=== PATIENT | female | born 1995 | race African-American/Black ===

== ENCOUNTER 2018-06-23 14:12 | Emergency (ER) | payer BC ==
[~2018-06-23] VITALS: Ht 154.9 cm; Wt 77.1 kg
[2018-06-23] MEDS ORDERED: NEXPLANON68 MG SUBQ (14:30)
[2018-06-23 15:46] LABS: ABSOLUTE NEUTROPHILS 3.4 thou/uL (1.4-8.2); BASOPHILS 0.4 % (0.0-2.0); EOSINOPHILS 1.3 % (0.0-3.0); HEMATOCRIT 39.9 % (37.0-47.0); HEMOGLOBIN 13.6 gm/dL (12.0-15.0); LYMPHOCYTES 25.1 % (24.0-44.0); MCH 31.3 pg (26.0-34.0); MCHC 34.1 g/dL (28.0-37.0); MCV 91.6 fL (80.0-100.0); MONOCYTES 7.5 % (1.0-8.0); PLATELET COUNT 359 thou/uL (150-400); POLYS 65.7 % (36.0-66.0); RBC 4.36 mil/uL (4.20-5.00); RDW 12.8 % (10.5-14.5); WBC 5.1 thou/uL (4.0-11.0)
[2018-06-23 15:57] LABS: ANION GAP 9 mmol/L (7-16); BUN 9 mg/dL (7-18); CHLORIDE 105 mmol/L (98-107); CO2 28 mmol/L (21-32); CREATININE 0.7 mg/dL (0.6-1.0); GLUCOSE 97 mg/dL (74-106); POTASSIUM 3.5 mmol/L (3.5-5.1); SODIUM 142 mmol/L (136-145)
[2018-06-23] MEDS ORDERED: TRAMADOL 50 MG50 MG PO (16:01)
[2018-06-23] MEDS ORDERED: NORFLEX100 MG PO (16:01)
[2018-06-23] MEDS ORDERED: NAPROSYN500 MG PO (16:01)
[2018-06-23 16:05] LABS: ALBUMIN 3.6 g/dL (3.4-5.0); MAGNESIUM 1.8 mg/dL (1.8-2.4); SGOT 17 U/L (15-37); SGPT 21 U/L (30-65); TOTAL BILIRUBIN 0.3 mg/dL (<0.1-1.0); TOTAL PROTEIN 8.1 g/dL (6.4-8.2); TROPONIN-I <0.06 ng/mL (<0.06)
[2018-06-23 16:11] LABS: APTT 29.7 Seconds (24.5-32.8); D-DIMER 0.42 ug/mLFEU (0.19-0.50)
[2018-06-23 17:18] VITALS: BP 125/81
--- NOTE | 2018-06-24 10:00 | EKG ---
[address] [place] [address] ELECTROCARDIOGRAM REPORT Name: POLA PETTY Room #: DEP NATHANAEL Chang#: [id number] Admission: 06/23/18 Attend Phys: Discharge: 06/23/18 Date of : 89 Report #: [id number] THIS REPORT FOR: //name// [facility] ED Test Date: 2018-06-23 Test Time: 14:22:35 Pat Name: POLA PETTY Department: Room: Gender: F [employer]: [facility] : 1995 Requested By: Govind Lopez Order Number: [id number] MD: Terry Allred Measurements Intervals [place] Rate: 90 P: 61 OR: 167 QRS: 0 QRSD: 81 T: 19 QT: 362 QTc: 443 Interpretive Statements Sinus rhythm No significant abnormality Baseline wander in lead(s) V4 No previous ECG available for comparison Electronically Signed On 06-24-2018 10:00:19 [employer] by Terry Allred [email or web address] <ELECTRONICALLY SIGNED> By: Terry Allred MD, [facility] 06/24/18 1000 1422 1422 Terry Allred MD, FACC /EPI
== END 2018-06-23 17:19 | disposition home or self-care (01) ==
LOC: ER 14:12
PROVIDERS: Emergency Medicine
DX: M43.6 Torticollis (principal); R07.89 Other chest pain; K58.9 Irritable bowel syndrome, unspecified; Z88.6 Allergy status to analgesic agent